=== PATIENT | female | born 1970 | race Caucasian/White ===

== ENCOUNTER 2017-05-23 12:51 | Day surgery (SDC) | payer OTHER ==
[~2017-05-23] VITALS: Ht 152.4 cm; Wt 139.3 kg
[~2017-05-23 12:51] MED LIST: IBUP200C10 PO; VITA100067 PO
[2017-05-23] MEDS ORDERED: LR 1,000 ML IV SCH ×3 (13:00→17:45)
[2017-05-23 14:08] LABS: CONTROL LINE UCG INT CTR LINE PRESENT
[2017-05-23] MEDS ORDERED: MIDAZOLAM INJ 2 MG/2 ML VIAL (J2250) As Ordered ONE (14:32)
[2017-05-23] MEDS ORDERED: fentaNYL 100 MCG/2 ML INJECTION (J3010) As Ordered ONE (14:32)
[2017-05-23] MEDS ORDERED: LIDOCAINE 2% INJ 100 MG/5 ML SDV (FOR ANES.) As Ordered ONE (14:32)
[2017-05-23] MEDS ORDERED: PROPOFOL 200 MG/20 ML VIAL As Ordered ONE (14:32)
[2017-05-23] MEDS ORDERED: ePHEDrine SULFATE 25 MG/5 ML(5MG/ML) SYRINGE As Ordered ONE ×2 (14:40→16:51)
[2017-05-23] MEDS ORDERED: ESMOLOL INJ 100MG/10ML VIAL As Ordered ONE (15:15)
[2017-05-23] MEDS ORDERED: ROPIvacaine 0.5% 30 ML INJECTION (J2795) As Ordered ONE (16:04)
[2017-05-23] MEDS ORDERED: PHENYLephrine HCL 500 MCG/5 ML (100MCG/ML) SYRINGE (J2370) As Ordered ONE (16:54)
[2017-05-23] MEDS ORDERED: HYDROmorphone HCL 1 MG/ML SYRINGE (J1170) IV PRN (17:45)
[2017-05-23] MEDS ORDERED: NORCO, ANEXSIA 5/325MG TABLET (HYDROcodone/ACETAMINOPHEN) PO PRN ×2 (17:45)
[2017-05-23] MEDS ORDERED: PERCOCET 5MG/325MG TAB PO PRN (17:45)
[2017-05-23] MEDS ORDERED: fentaNYL 100 MCG/2 ML INJECTION (J3010) IV PRN (17:45)
[2017-05-23] MEDS ORDERED: ONDANSETRON 4MG/2ML VIAL (J2405) IV PRN (17:45)
[2017-05-23 19:30] VITALS: BP 124/68
--- NOTE | 2017-05-23 19:30 | RO ---
DATE OF PROCEDURE: 05/23/2017 PREOPERATIVE DIAGNOSIS: Right knee osteoarthritis, medial meniscus tear, morbid obesity. POSTOPERATIVE DIAGNOSIS: Right knee osteoarthritis, medial meniscus tear, morbid obesity. PROCEDURE: Right knee operative arthroscopy, partial medial meniscectomy and joint debridement. SURGEON: Dr. Thee Davis GEOTHERMAL FIELD TECHNICIAN: ANESTHESIA: Spinal. ESTIMATED BLOOD LOSS: Minimal COMPLICATIONS: None. INDICATIONS: This is a 46-year-old woman with a BMI of 60, who has had persistent knee pain. She had an MRI scan that was consistent with a medial meniscus tear as well as a significant osteoarthritis. She wished a trial of an arthroscopy and understood that this might be a very limited success with her weight and underlying arthritis. She understood the nature of this, the risks of bleeding, infection, damage to nerves, vessels, persistent pain, blood clots, medical problems, among others. DESCRIPTION OF PROCEDURE: The patient was taken to the operating room and placed in the supine position after spinal anesthesia was induced. The right lower extremity was prepped and draped in the usual sterile fashion. I then created inferomedial and inferolateral portals per routine, identified the patellofemoral joint which had extensive arthritis. I proceeded down both gutters, identified the medial compartment. It was actually very difficult to visualize because of her obesity. The medial compartment had advanced arthritis. There were some areas of full-thickness articular cartilage loss, loose flaps that were smoothed off as well as a complex medial meniscus tear that was debrided with a combination of basket punch and 4.2 shaver back to a stable rim. Identified the notch, and there was a cystic structure around the anterior cruciate ligament (ACL) that was removed. There was also an ACL tear that appeared to be chronic. The lateral compartment was identified, and the lateral compartment was fairly well preserved. She did not have a significant lateral meniscus tear that was probed and no significant tear noted. I then proceeded back to patellofemoral joint, smoothed off any loose articular cartilage flaps, reexamined the entire joint, removed the instrumentation, closed the portals using #4-0 nylon suture, injected 30 mL of Naropin into the knee. Sterile dressing was applied, and she was taken to the recovery room in stable condition. There were no known complications. The plan will be routine postoperative. This procedure was coded as unusually difficult due to her body mass index (BMI) of 60, which made it much more difficult to get around the knee and visualize things and perform the surgery. I was not able to use a tourniquet, which I normally would have, and, of course, her prognosis is more limited. NANCY
== END 2017-05-23 19:40 | disposition home or self-care (01) ==
LOC: M SDC 12:51
PROVIDERS: ATTEND Orthopaedic Surgery
DX: M17.11 Unilateral primary osteoarthritis, right knee (principal); S83.221A Peripheral tear of medial meniscus, current injury, right knee, initial encounter; S83.511A Sprain of anterior cruciate ligament of right knee, initial encounter; E66.01 Morbid (severe) obesity due to excess calories; Z68.44 Body mass index [BMI] 60.0-69.9, adult; K21.9 Gastro-esophageal reflux disease without esophagitis; X58.XXXA Exposure to other specified factors, initial encounter; Y93.89 Activity, other specified; Y92.89 Other specified places as the place of occurrence of the external cause; Y99.8 Other external cause status
CPT/HCPCS: 29881; 36415; 84703; J0690; J2250; J2370; J2795; J3010

== ENCOUNTER → 2021-10-28 | Outpatient (CLI) | payer OTHER ==
[~2021-10-28] MED LIST changes: +BLAC40CA PO; +CETI10CH PO; -IBUP200C10 PO; +IBUP200C25 PO; +VITA100093 PO
== END ==
LOC: M LABSMTC 08:59
PROVIDERS: ATTEND Anesthesiology
DX: Z01.812 Encounter for preprocedural laboratory examination (principal); Z20.822 Contact with and (suspected) exposure to COVID-19

== ENCOUNTER 2021-11-01 07:28 | Day surgery (SDC) | payer OTHER ==
[~2021-11-01] VITALS: Ht 152.4 cm; Wt 131.5 kg
[~2021-11-01 07:28] MED LIST changes: +LIDOCAINE 2% 100MG/5ML SDV (FOR ANES.) As Ordered ONE; +NS 1,000 ML IV ONE; +fentaNYL 100 MCG/2 ML INJECTION As Ordered ONE; +propofoL 500 MG/50 ML VIAL As Ordered ONE
[2021-11-01 09:24] VITALS: BP 110/62
== END 2021-11-01 09:49 | disposition home or self-care (01) ==
LOC: M OPP 07:28
PROVIDERS: ATTEND Internal Medicine Gastroenterology
DX: Z12.11 Encounter for screening for malignant neoplasm of colon (principal); K64.0 First degree hemorrhoids; K21.00 Gastro-esophageal reflux disease with esophagitis, without bleeding; K22.89 Other specified disease of esophagus; R12 Heartburn; Z79.1 Long term (current) use of non-steroidal anti-inflammatories (NSAID)
CPT/HCPCS: 43239; 45380; 88305; J3010

== ENCOUNTER → 2022-06-06 | Outpatient (CLI) | payer OTHER ==
[~2022-06-06] MED LIST changes: -LIDOCAINE 2% 100MG/5ML SDV (FOR ANES.) As Ordered ONE; -NS 1,000 ML IV ONE; -fentaNYL 100 MCG/2 ML INJECTION As Ordered ONE; -propofoL 500 MG/50 ML VIAL As Ordered ONE
== END ==
LOC: M RAD 07:21
PROVIDERS: ATTEND Nurse Practitioner Adult Health
DX: K76.0 Fatty (change of) liver, not elsewhere classified (principal)

== ENCOUNTER → 2024-05-12 | Outpatient (CLI) | payer OTHER | LOC: M WUC 12:05 | PROVIDERS: ATTEND Nurse Practitioner Adult Health | DX: R05.1 Acute cough (principal); R05.9 Cough, unspecified ==

== ENCOUNTER 2025-05-21 06:59 | Day surgery (SDC) | payer BC ==
[~2025-05-21] VITALS: Ht 152.4 cm; Wt 137.3 kg
[~2025-05-21 06:59] MED LIST changes: +CLON-442 PO; +LIDOCAINE 1% SDV 30 ML VIAL XX ONE; +LIDOCAINE W/EPINEPHrine 1% 20 ML VIAL XX ONE; +OMEP40CA4 PO; +SODIUM BICARBONATE 8.4% INJ 50MEQ/50ML VIAL XX ONE; +VENL37.52 PO
[2025-05-21] MEDS ORDERED: LR 1,000 ML IV SCH (07:10)
[2025-05-21 09:38] VITALS: BP 151/71; TEMP 96.9; O2SAT 97
== END 2025-05-21 09:53 | disposition home or self-care (01) ==
LOC: M SDC 06:59
PROVIDERS: ATTEND Orthopaedic Surgery Hand Surgery
DX: M71.342 Other bursal cyst, left hand (principal)